=== PATIENT | male | born 2005 | race Caucasian/White ===

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

== ENCOUNTER 2024-04-02 18:06 | Emergency (ER) | payer BC, MEDICAID ==
[~2024-04-02] VITALS: Ht 175.3 cm; Wt 123.0 kg
[2024-04-02 18:12] VITALS: TEMP 97.8
[2024-04-02] MEDS ORDERED: ONDA-243 PO (20:51)
[2024-04-02] MEDS ORDERED: ACET1TAB96 PO (20:51)
[2024-04-02] MEDS ORDERED: PROM25TA14 PO (20:51)
[2024-04-02] MEDS ORDERED: PRED10TA23 PO (20:51)
[2024-04-02] MEDS: ondansetron 4mg rapidly disintigrating tab PO ONE (21:06)
[2024-04-02] MEDS: acetaminophen w/codeine (30MG) #3 tablet PO ONE (21:06)
[2024-04-02] MEDS: dexamethasone sod phosphate 10mg/ml inj IM STA (21:06)
[2024-04-02] MEDS: ketorolac trometh 30MG/ML vial 30 MG/ML VIAL IM ONE (21:07)
[2024-04-02 21:20] VITALS: BP 148/82; PULSE 98; RESP 18; O2SAT 99
== END 2024-04-02 21:22 | disposition home or self-care (01) ==
LOC: ER 18:06
DX: B34.9 Viral infection, unspecified (principal); Z20.822 Contact with and (suspected) exposure to COVID-19
CPT/HCPCS: 36415; 71045; 87502; 87503; 87811; 96372; 99284; J1100; J1885; 99285